=== PATIENT | male | born 1955 | race Two or more races ===

== ENCOUNTER 2017-07-18 14:49 | Emergency (ER) | payer OTHER ==
[~2017-07-18] VITALS: Ht 185.4 cm; Wt 105.0 kg
[2017-07-18 17:29] VITALS: BP 146/78
== END 2017-07-18 17:45 | disposition home or self-care (01) ==
LOC: EMS 14:52
DX: S13.4XXA Sprain of ligaments of cervical spine, initial encounter (principal); M79.641 Pain in right hand; I10 Essential (primary) hypertension; F17.210 Nicotine dependence, cigarettes, uncomplicated; V49.49XA Driver injured in collision with other motor vehicles in traffic accident, initial encounter; Y93.89 Activity, other specified; Y92.89 Other specified places as the place of occurrence of the external cause; Y99.8 Other external cause status
CPT/HCPCS: 99284